=== PATIENT | male | born 1985 | race Two or more races ===

== ENCOUNTER 2024-10-27 13:41 | Emergency (ER) | payer SELFPAY ==
[~2024-10-27] VITALS: Ht 177.8 cm; Wt 111.1 kg
[2024-10-27 14:24] LABS: PLATELET COUNT (AUTO) 172 K/uL (150-450); RED BLOOD CELL COUNT(AUTO) 4.38 MIL/uL (4.5-6.0); RED CELL DISTRIBUTION WIDTH 14.0 % (11.5-15.0); WHITE BLOOD COUNT (AUTO) 5.4 K/uL (4.3-11.0)
[2024-10-27 14:33] LABS: CALCIUM, SERUM 8.3 mg/dL (8.5-10.1); CREATININE 1.5 mg/dL (0.6-1.3); SODIUM SERUM 142 mmol/L (136-145); UREA NITROGEN, BLOOD 10 mg/dL (7-18)
[2024-10-27 14:40] LABS: ALCOHOL, BLOOD < 3 mg/dL (0-10); ASPARTATE AMINOTRANSFERASE 40 U/L (15-37); TOTAL PROTEIN, SERUM 6.3 g/dL (6.4-8.2)
[2024-10-27] MEDS: IV NS 0.9% 1,000 ML BAG IV ONE (15:20)
[2024-10-27 15:40] VITALS: BP 148/91; TEMP 96.7; O2SAT 97
== END 2024-10-27 15:42 | disposition left against medical advice (07) ==
LOC: ER 13:46
DX: T50.991A Poisoning by other drugs, medicaments and biological substances, accidental (unintentional), initial encounter (principal); F19.10 Other psychoactive substance abuse, uncomplicated; I10 Essential (primary) hypertension; E66.9 Obesity, unspecified; R00.0 Tachycardia, unspecified; R07.9 Chest pain, unspecified; R79.89 Other specified abnormal findings of blood chemistry; Z60.2 Problems related to living alone; Z68.35 Body mass index [BMI] 35.0-35.9, adult; Z20.822 Contact with and (suspected) exposure to COVID-19; Y92.89 Other specified places as the place of occurrence of the external cause
CPT/HCPCS: 99285; 96360; 93005; 71045; 85025; 80048; 80076; 36415; 87426; 80143; 80320; J7030; G0480

== ENCOUNTER 2024-11-01 03:31 | Emergency (ER) | payer OTHER ==
[~2024-11-01] VITALS: Ht 177.8 cm; Wt 102.1 kg
[2024-11-01 04:45] LABS: PLATELET COUNT (AUTO) 271 K/uL (150-450); RED BLOOD CELL COUNT(AUTO) 4.65 MIL/uL (4.5-6.0); RED CELL DISTRIBUTION WIDTH 13.3 % (11.5-15.0); WHITE BLOOD COUNT (AUTO) 8.2 K/uL (4.3-11.0)
[2024-11-01 04:51] LABS: CALCIUM, SERUM 9.0 mg/dL (8.5-10.1); CREATININE 0.9 mg/dL (0.6-1.3); SODIUM SERUM 140 mmol/L (136-145); UREA NITROGEN, BLOOD 22 mg/dL (7-18)
[2024-11-01 04:54] LABS: APPEARANCE,URINE CLEAR (CLEAR); BLOOD, URINE TRACE-INTA Ery/uL (NEGATIVE); LEUKOCYTE ESTERASE ,URINE NEGATIVE (NEGATIVE); NITRITE, URINE NEGATIVE (NEGATIVE); UGLUCOSE NEGATIVE (NEGATIVE)
[2024-11-01 04:57] LABS: ALCOHOL, BLOOD < 3 mg/dL (0-10); ASPARTATE AMINOTRANSFERASE 38 U/L (15-37); TOTAL PROTEIN, SERUM 7.1 g/dL (6.4-8.2)
[2024-11-01 05:09] LABS: ADD URINE CULTURE YES; SQUAMOUS EPITHELIAL CELL,UR Few /HPF (None Seen)
[2024-11-01 05:10] LABS: BARBITURATE, URINE NEGATIVE (NEGATIVE); CANNABINOID, URINE NEGATIVE (NEGATIVE); COCCAINE, URINE NEGATIVE (NEGATIVE); OPIATE, URINE NEGATIVE (NEGATIVE)
[2024-11-01 05:13] LABS: AMPHETAMINE, URINE POSITIVE (NEGATIVE); BENZODIAZEPINE, URINE POSITIVE (NEGATIVE)
[2024-11-01] MEDS ORDERED: CEFTRIAXONE 1 G VIAL ONE (05:39)
[2024-11-01] MEDS ORDERED: POTASSIUM CHLORIDE 20 MEQ TAB.PRT.SR PO ONE (05:39)
[2024-11-01] MEDS: POTASSIUM CHLORIDE 20 MEQ TAB.PRT.SR PO ONE (05:46)
[2024-11-01] MEDS: CEFTRIAXONE 1 G VIAL IM ONE (05:46)
[2024-11-01 09:36] VITALS: BP 132/66; TEMP 98.3; O2SAT 98
== END 2024-11-01 09:36 | disposition home or self-care (01) ==
LOC: ER 03:33
DX: F19.10 Other psychoactive substance abuse, uncomplicated (principal); R41.82 Altered mental status, unspecified; R74.01 Elevation of levels of liver transaminase levels; E87.6 Hypokalemia; G93.41 Metabolic encephalopathy; N39.0 Urinary tract infection, site not specified; Z60.2 Problems related to living alone; Z20.822 Contact with and (suspected) exposure to COVID-19
CPT/HCPCS: 99283; 85025; 80048; 87086; 80076; 81001; 36415; 87426; 80143; 80320; 80307; J0696; G0480